=== PATIENT | female | born 1955 | race Caucasian/White ===

== ENCOUNTER 2019-01-22 15:33 | Inpatient (IN) | payer MEDICAID ==
[~2019-01-22] VITALS: Ht 165.1 cm; Wt 84.4 kg
[2019-01-22 16:01] LABS: BASOPHILS % (AUTO) 0.2 % (0.0-2.0); HEMATOCRIT 37.1 % (36-46); HEMOGLOBIN 12.7 g/dL (12.0-16.0); LYMPHOCYTES # (AUTO) 2.6 K/uL (1.0-4.8); LYMPHOCYTES % (AUTO) 40.2 % (22.0-44.0); MEAN CORPUSCULAR HEMOGLOBIN 29.4 pg (26.0-34.0); MEAN CORPUSCULAR HGB CONC 34.1 G/dL (31.0-37.0); MEAN CORPUSCULAR VOLUME 86 fL (80-100); MONOCYTES # (AUTO) 0.6 K/uL (0.1-1.0); MONOCYTES % (AUTO) 8.8 % (2.0-9.0); NEUTROPHILS # (AUTO) 3.1 K/uL (1.8-7.7); NEUTROPHILS % (AUTO) 47.8 % (40.0-70.0); PLATELET COUNT (AUTO) 278 K/uL (150-450); RED CELL DISTRIBUTION WIDTH 13.5 % (11.5-14.5)
[2019-01-22 16:03] LABS: ANION GAP 9 mmol/L (8-16); CALCIUM, TOTAL 9.5 mg/dL (8.8-10.5); CARBON DIOXIDE 32 mmol/L (22-29); CHLORIDE 103 mmol/L (98-107); CREATININE 1.19 mg/dL (0.60-1.30); GLOMERULAR FILTR. RATE CALC 46 mL/min (>60); GLUCOSE,RANDOM 147 mg/dL (70-110); SODIUM SERUM 144 mmol/L (136-145); UREA NITROGEN, BLOOD 15 mg/dL (7-18)
[2019-01-22 16:09] LABS: ALANINE AMINOTRANSFERASE 29 U/L (12-78); ALBUMIN 3.9 g/dL (3.4-5.0); ALKALINE PHOSPHATASE 61 U/L (46-116); ASPARTATE AMINOTRANSFERASE 23 U/L (15-37); BILIRUBIN,TOTAL 0.2 mg/dL (0.1-1.0); TOTAL PROTEIN, SERUM 7.4 g/dL (6.4-8.2)
[2019-01-22] MEDS ORDERED: DICY20 PO (16:28)
[2019-01-22] MEDS ORDERED: GABA-531 PO (16:28)
[2019-01-22] MEDS ORDERED: METR250 PO (16:28)
[2019-01-22] MEDS ORDERED: AMOX1TAB16 PO (16:28)
[2019-01-22] MEDS ORDERED: CIPR-278 PO (16:28)
[2019-01-22] MEDS ORDERED: HYD50 PO (16:28)
[2019-01-22] MEDS ORDERED: NICOTINE 7 MG/24 HOUR PATCH TD ONE (17:30)
[2019-01-22 17:34] LABS: APPEARANCE,URINE CLEAR (CLEAR); BILIRUBIN,URINE NEGATIVE (NEGATIVE); GLUCOSE, URINE (UA) NEGATIVE (NEGATIVE); KETONES,URINE NEGATIVE (NEGATIVE); LEUKOCYTE ESTERASE ,URINE NEGATIVE (NEGATIVE); NITRATE,URINE NEGATIVE (NEGATIVE); OCCULT BLOOD,URINE NEGATIVE (NEGATIVE); PH,URINE 8.5 (5.0-8.0); PROTEIN,URINE NEGATIVE (NEGATIVE); UROBILINOGEN,URINE 0.2 mg/dL (<=1.0)
[2019-01-22 17:39] LABS: AMPHET/METH SCREEN,URINE NEGATIVE (NEGATIVE); BARBITURATE SCREEN, URINE NEGATIVE (NEGATIVE); BENZODIAZEPINES SCREEN,URINE NEGATIVE (NEGATIVE); CANNABINOID SCREEN,URINE NEGATIVE (NEGATIVE); COCAINE SCREEN,URINE NEGATIVE (NEGATIVE); METHADONE SCREEN, URINE NEGATIVE (NEGATIVE); OPIATE SCREEN,URINE NEGATIVE (NEGATIVE); PHENCYCLIDINE SCREEN,URINE NEGATIVE (NEGATIVE)
[2019-01-22] MEDS ORDERED: HALOPERIDOL 5 MG TABLET PO PRN (17:45)
[2019-01-22 20:36] VITALS: BP 140/76
[2019-01-22] MEDS ORDERED: IBUPROFEN 400 MG TABLET PO PRN (20:45)
[2019-01-22] MEDS ORDERED: GuaiFENesin/D-METHORPHAN [SUGAR-FREE] 200-20MG/10 ML SYRUP UDCUP PO PRN (20:45)
[2019-01-22] MEDS ORDERED: ONDANSETRON HCL 4 MG TABLET PO PRN (20:45)
[2019-01-22] MEDS ORDERED: MAG HYDROX/AL HYDROX/SIMETH ES 30 ML SUSPENSION UDCUP PO PRN (20:45)
[2019-01-22] MEDS ORDERED: PETROLATUM,WHITE 28 GM JELLY TP PRN (20:45)
[2019-01-22] MEDS ORDERED: ALBUTEROL SULFATE HFA 90 MCG/PUFF 8 GM INHALER IH PRN (20:45)
[2019-01-22] MEDS ORDERED: ACETAMINOPHEN 325 MG TABLET PO PRN (20:45)
[2019-01-22] MEDS ORDERED: DOCUSATE SODIUM 100 MG CAPSULE PO PRN (20:45)
[2019-01-22] MEDS ORDERED: MAGNESIUM HYDROXIDE SUSPENSION 30 ML UDCUP PO PRN (20:45)
[2019-01-22] MEDS ORDERED: CloNIDine HCL 0.1 MG TABLET PO PRN (20:45)
[2019-01-22] MEDS: ZOLPIDEM TARTRATE 10 MG TABLET PO PRN (21:14)
[2019-01-23 06:20] VITALS: BP 130/78
[2019-01-23 08:23] LABS: BASOPHILS % (AUTO) 0.6 % (0.0-2.0); EOSINOPHILS % (AUTO) 3.1 % (1.0-6.0); HEMATOCRIT 40.7 % (36-46); HEMOGLOBIN 13.5 g/dL (12.0-16.0); LYMPHOCYTES # (AUTO) 2.4 K/uL (1.0-4.8); MEAN CORPUSCULAR HEMOGLOBIN 28.6 pg (26.0-34.0); MEAN CORPUSCULAR HGB CONC 33.1 G/dL (31.0-37.0); MEAN CORPUSCULAR VOLUME 86 fL (80-100); MONOCYTES # (AUTO) 0.8 K/uL (0.1-1.0); MONOCYTES % (AUTO) 10.6 % (2.0-9.0); NEUTROPHILS # (AUTO) 4.2 K/uL (1.8-7.7); NEUTROPHILS % (AUTO) 54.7 % (40.0-70.0); PLATELET COUNT (AUTO) 286 K/uL (150-450); RED BLOOD CELL COUNT(AUTO) 4.71 MIL/uL (4.00-5.20); RED CELL DISTRIBUTION WIDTH 13.5 % (11.5-14.5)
[2019-01-23 08:38] LABS: HEMOGLOBIN A1C 5.9 % (4.5-6.2)
[2019-01-23 08:45] VITALS: BP 114/75
[2019-01-23 08:52] LABS: ALBUMIN 4.2 g/dL (3.4-5.0); BILIRUBIN,TOTAL 0.3 mg/dL (0.1-1.0); CHOL/HDL RATIO 6.7 (3.9-5.7); CREATININE 1.04 mg/dL (0.60-1.30); FREE T4 (FREE THYROXINE) 0.71 ng/dL (0.76-1.46); POTASSIUM 4.6 mmol/L (3.5-5.1); THYROID STIMULATING HORMONE 3.68 uIU/mL (0.36-3.74); TOTAL PROTEIN, SERUM 7.8 g/dL (6.4-8.2)
[2019-01-23] MEDS: NICOTINE 14 MG/24 HOUR PATCH TD PRN (09:15)
[2019-01-23] MEDS: LORazepam 2 MG TABLET PO PRN ×2 (09:19→18:15)
[2019-01-23] MEDS: DICYCLOMINE HCL 20 MG TABLET PO SCH ×4 (09:54→21:50)
[2019-01-23] MEDS: GABAPENTIN 300 MG CAPSULE PO SCH ×2 (14:26→18:00)
[2019-01-23 16:00] VITALS: BP 101/72
[2019-01-23] MEDS: OLANZapine 5 MG TABLET PO SCH (21:50)
[2019-01-24 00:10] VITALS: BP 118/78
[2019-01-24] MEDS: LEVOTHYROXINE SODIUM 25 MCG TABLET PO SCH (06:42)
[2019-01-24 08:24] VITALS: BP 123/82
[2019-01-24] MEDS: DICYCLOMINE HCL 20 MG TABLET PO SCH ×4 (09:14→20:31)
[2019-01-24] MEDS: LORazepam 2 MG TABLET PO PRN ×2 (09:14→16:33)
[2019-01-24] MEDS: GABAPENTIN 300 MG CAPSULE PO SCH ×3 (09:16→16:41)
[2019-01-24] MEDS: NICOTINE 14 MG/24 HOUR PATCH TD PRN (09:17)
[2019-01-24] MEDS: BuPROPion HCL XL 150 MG ER TABLET PO SCH (11:08)
[2019-01-24 13:28] VITALS: BP 132/83
[2019-01-24 16:25] VITALS: BP 109/74
[2019-01-24] MEDS: OLANZapine 5 MG TABLET PO SCH (20:31)
[2019-01-25 02:09] VITALS: BP 102/73
[2019-01-25] MEDS: LEVOTHYROXINE SODIUM 25 MCG TABLET PO SCH (06:01)
[2019-01-25] MEDS: DICYCLOMINE HCL 20 MG TABLET PO SCH ×4 (08:23→20:32)
[2019-01-25] MEDS: BuPROPion HCL XL 150 MG ER TABLET PO SCH (08:23)
[2019-01-25] MEDS: GABAPENTIN 300 MG CAPSULE PO SCH ×3 (08:23→17:05)
[2019-01-25] MEDS: LORazepam 2 MG TABLET PO PRN (08:25)
[2019-01-25 09:10] VITALS: BP 115/68
[2019-01-25] MEDS: NICOTINE 14 MG/24 HOUR PATCH TD PRN (12:33)
[2019-01-25 17:20] VITALS: BP 112/75
[2019-01-25] MEDS: OLANZapine 5 MG TABLET PO SCH (20:31)
[2019-01-25] MEDS: ZOLPIDEM TARTRATE 10 MG TABLET PO PRN (21:19)
[2019-01-26 05:25] VITALS: BP 96/78
[2019-01-26] MEDS: LEVOTHYROXINE SODIUM 25 MCG TABLET PO SCH (06:32)
[2019-01-26 08:13] VITALS: BP 93/62
[2019-01-26] MEDS: DICYCLOMINE HCL 20 MG TABLET PO SCH ×4 (09:11→20:37)
[2019-01-26] MEDS: BuPROPion HCL XL 150 MG ER TABLET PO SCH (09:11)
[2019-01-26] MEDS: GABAPENTIN 300 MG CAPSULE PO SCH ×3 (09:11→16:41)
[2019-01-26] MEDS: NICOTINE 14 MG/24 HOUR PATCH TD PRN (09:16)
[2019-01-26 09:58] VITALS: BP 123/78
[2019-01-26] MEDS: LORazepam 2 MG TABLET PO PRN ×2 (09:59→16:41)
[2019-01-26] MEDS: LOPERAMIDE HCL 2 MG CAPSULE PO PRN (16:42)
[2019-01-26 16:45] VITALS: BP 120/80
[2019-01-26] MEDS: ZOLPIDEM TARTRATE 10 MG TABLET PO PRN (20:38)
[2019-01-26] MEDS: OLANZapine 5 MG TABLET PO SCH (20:38)
[2019-01-27 03:11] VITALS: BP 113/76
[2019-01-27] MEDS: LEVOTHYROXINE SODIUM 25 MCG TABLET PO SCH (06:51)
[2019-01-27] MEDS ORDERED: BUPR-47 PO (08:16)
[2019-01-27] MEDS ORDERED: OLAN5TAB27 PO (08:16)
[2019-01-27 08:29] VITALS: BP 113/71
[2019-01-27] MEDS: DICYCLOMINE HCL 20 MG TABLET PO SCH ×2 (08:39→12:28)
[2019-01-27] MEDS: GABAPENTIN 300 MG CAPSULE PO SCH ×2 (08:39→12:28)
[2019-01-27] MEDS: BuPROPion HCL XL 150 MG ER TABLET PO SCH (08:40)
[2019-01-27] MEDS ORDERED: LEVO25TA9 PO (08:54)
[2019-01-27] MEDS ORDERED: BUPR-93 PO (08:54)
[2019-01-27] MEDS ORDERED: OLAN5TAB2 PO (08:54)
[2019-01-27] MEDS: NICOTINE 14 MG/24 HOUR PATCH TD PRN (09:44)
[2019-01-27] MEDS: LOPERAMIDE HCL 2 MG CAPSULE PO PRN (12:32)
== END 2019-01-27 13:30 | disposition home or self-care (01) | DRG 751 ==
LOC: EMS 15:33 → B3A 18:48
PROVIDERS: ADMIT Psychiatry & Neurology Psychiatry; ATTEND Psychiatry & Neurology Psychiatry
DX: F33.2 Major depressive disorder, recurrent severe without psychotic features (principal); R45.851 Suicidal ideations; E03.9 Hypothyroidism, unspecified; E78.5 Hyperlipidemia, unspecified; F17.200 Nicotine dependence, unspecified, uncomplicated; F43.10 Post-traumatic stress disorder, unspecified; K21.9 Gastro-esophageal reflux disease without esophagitis; K57.90 Diverticulosis of intestine, part unspecified, without perforation or abscess without bleeding; F15.90 Other stimulant use, unspecified, uncomplicated; Z79.899 Other long term (current) drug therapy; Z71.6 Tobacco abuse counseling; Z90.49 Acquired absence of other specified parts of digestive tract; Z88.8 Allergy status to other drugs, medicaments and biological substances
CPT/HCPCS: 83036; 84439; 84443; G0480; Q0162